=== PATIENT | female | born 2000 | race Caucasian/White ===

== ENCOUNTER 2020-05-02 20:56 | Emergency (ER) | payer OTHER ==
[2020-05-02 22:25] LABS: HEMOGLOBIN 11.5 gm/dl (12.3-15.3); RED BLOOD COUNT 4.22 M/UL (4.00-5.10)
[2020-05-02 22:43] LABS: BUN/CREATININE RATIO 13 (0-10)
[2020-05-02] MEDS ORDERED: PERCOCET 5/325 T1 EA PO (23:54)
== END 2020-05-03 00:20 | disposition home or self-care (01) ==
LOC: ER1 20:56
PROVIDERS: Family Medicine
DX: R10.11 Right upper quadrant pain (principal); Z88.2 Allergy status to sulfonamides; Z90.49 Acquired absence of other specified parts of digestive tract
CPT/HCPCS: 80053; 81001; 83690; 84703; 85025; 96374; 96375; 99284; J2270; J2405; J7030

== ENCOUNTER → 2020-05-05 | Outpatient (CLI) | payer OTHER ==
[~2020-05-05] MED LIST: PERCOCET 5/325 T1 EA PO
== END ==
LOC: NM 13:00
DX: K80.20 Calculus of gallbladder without cholecystitis without obstruction (principal); R10.11 Right upper quadrant pain
CPT/HCPCS: 78226; A9537

== ENCOUNTER 2021-07-10 00:57 | Emergency (ER) | payer OTHER ==
[2021-07-10 02:28] LABS: HEMOGLOBIN 11.7 gm/dl (12.3-15.3); RED BLOOD COUNT 4.39 M/UL (4.00-5.10); WHITE BLOOD COUNT 6.6 K/UL (4.5-11.0)
[2021-07-10 02:45] LABS: BUN/CREATININE RATIO 17 (0-10)
[2021-07-10] MEDS ORDERED: TAMIFLU 75 MG C75 MG PO (04:38)
== END 2021-07-10 04:45 | disposition home or self-care (01) ==
LOC: ER1 00:57
PROVIDERS: Student in an Organized Health Care Education/Training Program
DX: J10.1 Influenza due to other identified influenza virus with other respiratory manifestations (principal); Z20.822 Contact with and (suspected) exposure to COVID-19; Z88.2 Allergy status to sulfonamides
CPT/HCPCS: 0240U; 71045; 80048; 84703; 85025; 85379; 99283